=== PATIENT | female | born 2000 | race African-American/Black ===

== ENCOUNTER 2019-12-22 17:19 | Emergency (ER) | payer MEDICAID, OTHER ==
[~2019-12-22] VITALS: Ht 167.6 cm; Wt 55.0 kg
[2019-12-22 18:15] VITALS: BP 118/66
[2019-12-22] MEDS ORDERED: IBUPROFEN 600MG TABLET PO ONE (18:15)
[2019-12-22] MEDS ORDERED: BACITRACIN ZINC OINT UDPKT TOP ONE (18:15)
[2019-12-22] MEDS ORDERED: LIDOCAINE 1%/EPI 1:100,000 10 ML VIAL IJ ONE (18:15)
== END 2019-12-22 20:43 | disposition home or self-care (01) ==
LOC: ER 17:19
DX: S61.411A Laceration without foreign body of right hand, initial encounter (principal); M54.5 Low back pain; M54.2 Cervicalgia; V49.40XA Driver injured in collision with unspecified motor vehicles in traffic accident, initial encounter; Y93.89 Activity, other specified; Y92.89 Other specified places as the place of occurrence of the external cause; Y99.8 Other external cause status
CPT/HCPCS: 73110; 73130; 81025; 99284; J3490

== ENCOUNTER 2020-01-07 19:32 | Emergency (ER) | payer MEDICAID, OTHER | END 2020-01-07 20:19 | disposition left against medical advice (07) | LOC: ER 19:32 | DX: M79.641 Pain in right hand (principal); Z53.21 Procedure and treatment not carried out due to patient leaving prior to being seen by health care provider ==

== ENCOUNTER 2020-02-05 12:02 | Emergency (ER) | payer OTHER ==
[~2020-02-05] VITALS: Ht 170.2 cm; Wt 64.0 kg
[2020-02-05 13:38] VITALS: BP 118/76
== END 2020-02-05 13:38 | disposition home or self-care (01) ==
LOC: ER 12:02
DX: M79.641 Pain in right hand (principal); M25.531 Pain in right wrist; M25.562 Pain in left knee; Z87.828 Personal history of other (healed) physical injury and trauma
CPT/HCPCS: 29125; 99283